=== PATIENT | male | born 1950 | race Caucasian/White ===

== ENCOUNTER → 2023-10-06 08:12 | Outpatient (REF) | payer MEDICARE, OTHER, SELFPAY | LOC: RAD 08:12 | PROVIDERS: ATTENDING PHYSICIAN Orthopaedic Surgery Hand Surgery; FAMILY PHYSICIAN Family Medicine | DX: M25.512 Pain in left shoulder (principal) | CPT/HCPCS: 78315; A9503 ==

== ENCOUNTER → 2023-10-13 06:53 | Outpatient (REF) | payer MEDICARE, OTHER, SELFPAY | LOC: RAD 06:53 | PROVIDERS: ATTENDING PHYSICIAN Orthopaedic Surgery Hand Surgery; FAMILY PHYSICIAN Family Medicine | DX: M25.512 Pain in left shoulder (principal) | CPT/HCPCS: 78803; A9569 ==

== ENCOUNTER 2024-10-06 06:25 | Day surgery (SDC) | payer MEDICARE, OTHER, SELFPAY ==
[2024-10-06 13:58] LABS: Glucose - Point of Care 104 mg/dl (70-99)
== END 2024-10-06 15:23 | disposition home or self-care (01) ==
LOC: GI 06:25
PROVIDERS: ATTENDING PHYSICIAN Internal Medicine Gastroenterology; FAMILY PHYSICIAN Family Medicine
DX: Z12.11 Encounter for screening for malignant neoplasm of colon (principal); K64.8 Other hemorrhoids; D12.2 Benign neoplasm of ascending colon; D12.3 Benign neoplasm of transverse colon; D12.4 Benign neoplasm of descending colon; D12.5 Benign neoplasm of sigmoid colon; K63.5 Polyp of colon; Z86.0101 Personal history of adenomatous and serrated colon polyps; Z80.0 Family history of malignant neoplasm of digestive organs
CPT/HCPCS: 45385; 45380; 82962; 88305